=== PATIENT | male | born 2000 | race Caucasian/White ===

== ENCOUNTER 2025-02-19 22:56 | Emergency (ER) | payer SELFPAY ==
[~2025-02-19] VITALS: Ht 175.3 cm; Wt 82.4 kg
[2025-02-20 00:19] LABS: BASOPHILS % 1.1 % (0.0-2.0); EOSINOPHILS % 3.8 % (0.0-5.0); HEMATOCRIT. 43.7 % (42.0-52.0); HEMOGLOBIN. 14.2 g/dL (14.0-18.0); LYMPHOCYTES % 29.5 % (20.0-50.0); MEAN PLATELET VOLUME 11.1 fl (7.4-10.4); MONOCYTES % 11.1 % (2.0-8.0); NEUTROPHILS % 54.5 % (40.0-76.0); PLATELET 172 x1000/uL (130-400); RED BLOOD CELL COUNT 4.67 mill/uL (4.7-6.1); RED CELL DISTRIBUTION WIDTH 13.7 % (11.6-14.6)
[2025-02-20 00:31] LABS: CREATININE 1.0 mg/dL (0.6-1.3); ETHANOL BLOOD < 10 mg/dL (<10); UREA NITROGEN BLOOD 6 mg/dL (9-23)
[2025-02-20 00:32] LABS: PROTEIN TOTAL 7.3 g/dL (6.0-8.3)
[2025-02-20 00:33] LABS: ASPARTATE AMINOTRANSFERASE 17 IU/L (<34); BILIRUBIN DIRECT 0.2 mg/dL (<=3.0); BILIRUBIN TOTAL 0.7 mg/dL (0.1-1.0)
[2025-02-20] MEDS: CLONIDINE 0.1MG TABLET PO ONE (01:15)
[2025-02-20] MEDS ORDERED: CLON0.1T MT (01:50)
[2025-02-20] MEDS ORDERED: ONDA-239 PO (01:50)
[2025-02-20] MEDS ORDERED: IBUP-2030 MT (01:50)
[2025-02-20] MEDS ORDERED: DIPH25CA83 MT (01:50)
[2025-02-20] MEDS: DIPHENHYDRAMINE 50MG/ML VIAL IV ONE (02:23)
[2025-02-20] MEDS: ONDANSETRON HCL 4MG/2ML INJ IV ONE (02:23)
[2025-02-20] MEDS: KETOROLAC 15MG/ML VIAL IV ONE (02:24)
[2025-02-20] MEDS: SODIUM CHLORIDE 0.9% 1,000 ML IV ONE (02:24)
[2025-02-20] MEDS: METOCLOPRAMIDE HCL 10MG/2ML VIAL IV ONE (02:58)
[2025-02-20 03:12] VITALS: BP_SYST 119; PULSE 75; RESP 18; TEMP 36.7; O2SAT 98
[2025-02-20 03:16] VITALS: BP_DIAS 75
== END 2025-02-20 03:18 | disposition home or self-care (01) ==
LOC: ER 22:56
DX: F11.23 Opioid dependence with withdrawal (principal)
CPT/HCPCS: 36415; 99285; 80076; 80048; 80320; 82550; 85025; 96361; 96374; 96375; J1200; J1885; J2765; J2405; J7030; G0480